=== PATIENT | male | born 2000 | race Caucasian/White ===

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

== ENCOUNTER 2019-04-30 16:13 | Outpatient (CLI) | payer OTHER ==
--- NOTE | 2019-04-30 16:35 | RAD ---
CHEST TWO VIEWS: 04/30/2019 HISTORY: Fever. Burning in the chest. COMPARISON: 08/31/2018 FINDINGS: The lungs are clear. The heart and mediastinal contours are unremarkable. IMPRESSION: No acute findings. POS: [facility]
== END 2019-04-30 16:14 | disposition home or self-care (01) ==
LOC: BICRAD 16:13
PROVIDERS: ATTEND Family Medicine
DX: R50.9 Fever, unspecified (principal)
CPT/HCPCS: 36415; 71046; 85025

== ENCOUNTER 2025-05-20 09:53 | Day surgery (SDC) | payer BC ==
[2025-05-17 10:19] VITALS: BMI 22.9
== END 2025-05-20 14:17 | disposition home or self-care (01) ==
LOC: MRI 09:53
PROVIDERS: ATTEND Family Medicine
PROC: B03BZZZ Magnetic Resonance Imaging (MRI) of Spinal Cord (ICD-10-PCS; principal; 2025-05-20)
DX: M54.2 Cervicalgia (principal); Z91.018 Allergy to other foods
CPT/HCPCS: 72141; J2250; J3010